=== PATIENT | female | born 1970 | race Caucasian/White ===

== ENCOUNTER → 2020-12-03 | Outpatient (CLI) | payer OTHER ==
[~2020-12-03] MED LIST: NORCO 5-325 TA1 EACH PO
[2020-12-04 12:14] LABS: RHEUMATOID ARTHRITIS FACTOR 10.7 IU/mL (0.0-13.9)
== END ==
LOC: LAB 10:32
PROVIDERS: Nurse Practitioner Family
DX: M79.642 Pain in left hand (principal); M79.641 Pain in right hand; M79.10 Myalgia, unspecified site; M25.50 Pain in unspecified joint
CPT/HCPCS: 36415; 73130; 82550; 83520; 85652; 86140; 86200; 86431